=== PATIENT | female | born 1985 | race Caucasian/White ===

== ENCOUNTER 2016-09-26 20:30 | Emergency (ER) | payer OTHER ==
[2016-09-26] MEDS ORDERED: PROVENTIL HFA6.7 GM INH (21:02)
[2016-09-26] MEDS ORDERED: JUNEL FE 1 MG-1 EACH PO (21:02)
[2016-09-26] MEDS ORDERED: PRENATAL TABLE1 EAC2 PO (21:03)
--- NOTE | 2016-09-26 21:07 | ED NECK/BACK PAIN COMPLAINT ---
History of Present Illness General Chief Complaint: Low Back Pain/Injury Stated Complaint: "LOWER BACK PAIN" Source: patient Exam Limitations: no limitations Vital Signs & Intake/Output Vital Signs & Intake/Output Vital Signs Date Time Temp Pulse Resp B/P B/P Pulse O2 O2 Flow FiO2 Mean Ox Delivery Rate 09/27 2047 Room Air 09/26 2034 98.3 73 20 111/77 99 ED Intake and Output 09/27 0000 09/26 1200 Intake Total 0 Output Total Balance 0 Intake, Oral 0 Allergies Coded Allergies: latex (UNKNOWN - REMEMBERS GOING TO ER FROM REACTION 09/26/16) Triage Note: PER PT CO LOWER BACK PAIN SINCE THIS AM BUT HAS BEEN ONGOING X 9 YRS, EVERY FEW MONTHS IT COMES BACK. LMP THIS PAST WEEK Triage Nurses Notes Reviewed? yes : No Patient currently breastfeeds: No HPI: 31F NO PMH WITH 1 DAY OF ACUTE ONSET LOWER BACK PAIN. STARTED WHEN SHE WAS SLEEPING, LUMBAR, BILATERAL, SHOOTING DOWN BOTH LEGS, NO SADDLE PARESTHESIA OR INCONTINENCE. NO HISTORY OF TRAUMA. HAS HAD SIMILAR EPISODES IN THE PAST EVERY 3-4 MONTHS THAT SELF-RESOLVED. (RUMA YEBOAH,ALEXI) Reconcile Medications Albuterol Sulfate (Proventil Hfa) 90 MCG HFA.AER.AD 2 PUF INH AD PRN ASTHMA ( Reported) Cyclobenzaprine HCl 5 MG TABLET 1 TAB PO TIDPRN SCIATICA Ibuprofen 400 MG TABLET 1 TAB PO Q6P PRN BACK PAIN Norethindrone-E.estradiol-Iron (Junel Fe 1 MG-20 Mcg Tablet) 1 MG-20 MCG (21)/75 MG (7) TABLET 1 TAB PO DAILY CONTROL (Reported) Vit No.130/Iron/FA ( Tablet) 27 MG IRON-800 MCG TABLET 1 TAB PO DAILY SUPPLEMENT (Reported) (TYRON YEBOAH,ABNER Couch) Past History Travel History Traveled to [place] past 21 day No Medical History Any Pertinent Medical History? see below for history Neurological: NONE EENT: NONE Cardiovascular: NONE Respiratory: NONE Gastrointestinal: NONE Hepatic: NONE Renal: NONE Musculoskeletal: BACK PROBLEMS Psychiatric: NONE Endocrine: NONE Surgical History Surgical History: non-contributory Psychosocial History What is your primary language Malagasy Tobacco Use: Current Daily Use Daily Tobacco Use Amount/Type: => 5 Cigarettes daily Family History Hx Contributory? No (ALEXI HENDRIX MD) Review of Systems Review of Systems Constitutional: Reports: no symptoms. Eyes: Reports: no symptoms. Ears, Nose, Throat, Mouth: Reports: no symptoms. Respiratory: Reports: no symptoms. Cardiovascular: Reports: no symptoms. Gastrointestinal/Abdominal: Reports: no symptoms. Musculoskeletal: Reports: see HPI. Skin: Reports: no symptoms. Neurological/Psychological: Reports: see HPI. All Other Systems: Reviewed and Negative (RUMA YEBOAH,ALEXI) Physical Exam Physical Exam General Appearance: well developed/nourished, mild distress Head: atraumatic Eyes: Bilateral: PERRL, EOMI. Ears, Nose, Throat, Mouth: hearing grossly normal Neck: normal inspection, supple, full range of motion, normal alignment, no midline tenderness Respiratory: normal breath sounds Cardiovascular: regular rate/rhythm Gastrointestinal: soft, non-tender Back: normal inspection, PARAVERTBRAL LUMBAR TENDERNES BILATERALLY, COULD NOT LAY FLAT FOR STRAIGHT LEG TEST. Extremities: normal range of motion Neurologic/Psych: awake, alert, oriented x 3, normal mood/affect, SENSATION INTACT, LOWER EXTREMITY MOVEMENT LIMITED BY PAIN Skin: intact, normal color, warm/dry (RUMA YEBOAH,ALEXI) Progress Differential Diagnosis: AAA, aortic dissection, C spine injury, carotid dissection, cauda equina syn, herniated disc, myofascial strain, pyelo/UTI, sciatica, spinal cord inj, thoracic outlet syn, T/L spine injury, ureterolithiasis Plan of Care: Orders Procedure Date/time Status CT LUMB SPINE WO IV CONTRAST 09/26 2129 Active Diagnostic Imaging: Discussed w/RAD: CT Scan. Radiology Impression: PATIENT: CLAIRE MENDES PRESENT AGE: 31 PATIENT ACCOUNT NO: [id number] : 86 LOCATION: [facility] ORDERING PHYSICIAN: ALEXI HENDRIX MD SERVICE DATE: 09/26/16 EXAM TYPE: CAT - CT LUMB SPINE WO IV CONTRAST EXAMINATION: CT LUMBAR SPINE WITHOUT CONTRAST CLINICAL INFORMATION: Sciatica COMPARISON: None TECHNIQUE: Helical non-contrast CT images were obtained through the lumbar spine and 1.25 and 2.5 mm axial reconstructions were reviewed along with sagittal and coronal MPRs. Lack of intrathecal contrast limits this exam. I cannot evaluate for effect on the nerve roots or on the thecal sac. There is no fracture here. The vertebral heights are well-maintained. 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 Probable nonobstructing calculus left kidney midpole At L2-L3 and cannot exclude disc bulging hand herniation. No significant degeneration the facets. There does appear to be some effect on the anterior thecal sac. At L3-L4 again I cannot exclude disc bulging/central herniation. Foramina appear patent. At L4-L5 again must consider disc bulging/herniation. Foramina are grossly patent. At L5-S1 there appears to be some degenerative lipping. Calcification partially of disc material extending posterior Central into the right. There does appear to be some mass effect on the thecal sac and lateral recess on the right. The neural foramina are grossly patent. IMPRESSION: Lack of intrathecal contrast greatly limits this exam. I cannot adequately evaluate for disc herniation or effect on the thecal sac or exiting nerve roots. Given this there may well be disc herniations at L2-L3, L3-L4 and L4-L5 and change which may be chronic at L5-S1 central and to the right. MRI is recommended to further evaluate here. There is no bony fracture DICTATED BY: ABNER ARMSTRONG MD DATE/TIME DICTATED:09/26/162242 CORRECTIONAL CAPTAIN:JUNG DATE/TIME TRANSCRIBED:09/26/162242 CONFIDENTIAL, DO NOT COPY WITHOUT APPROPRIATE AUTHORIZATION. <Electronically signed in Other Vendor System> SIGNED BY: ABNER ARMSTRONG MD 09/26/16 [id number] Comments: 09/27/2016 12:11:43 AM I have updated Claire on her test results. She denies cancer unexplained weight loss or immunosuppression, denies IV drug abuse urinary tract infection or recent trauma. Denies pain increased by rest or associated fever. Denies bowel or bladder incontinence or urinary retention. Denies saddle paresthesias or major motor weakness. She feels comfortable enough to return home and has declined any additional medication in the emergency department. (TYRON YEBOAH,ABNER Couch) Departure Departure Condition: Stable Referrals: MOHAN YEBOAH,SANTI Ferreira (PCP/Family) Departure Forms: Customer Survey General Discharge Information Prescriptions: Current Visit Scripts Ibuprofen 1 TAB PO Q6P PRN BACK PAIN #20 TAB Cyclobenzaprine HCl 1 TAB PO TIDPRN #30 TAB (RUMA YEBOAH,ALEXI) Departure Disposition: HOME OR SELF CARE Clinical Impression Primary Impression: Sciatica Secondary Impressions: Degenerative disc disease, lumbar, Low back strain Additional Instructions: Rest, no exertion or heavy lifting. Medications as prescribed. Follow-up with your primary care physician for reevaluation within the next 5-7 days. Return if any concerns or sudden worsening. Please note that there might be incidental findings in your evaluation that are unrelated to the current emergency department visit. Please notify your primary care doctor about this emergency department visit in order to obtain and review all of the testing performed so that these incidental findings can be monitored as needed. If you had an x-ray performed, please understand that some fractures may not be seen on the initial set of x-rays. If your symptoms persist you might need a repeat set of x-rays to check for such a fracture. If you had a laceration evaluated, please understand that foreign bodies such as glass or wood may not be visible to the naked eye or on plain x-rays. If the wound becomes red, swollen, increasingly more painful or if there is any drainage from the wound, please have it reevaluated by a physician for the possibility of a retained foreign body. Thank you for choosing the [facility] Emergency Department for your care. It was a pleasure to serve you today. Abner Larsen M.D. [facility] (TYRON YEBOAH,ABNER Couch)
[2016-09-26] MEDS ORDERED: CYCLOBENZAPRINE5 M2 PO (21:53)
[2016-09-26] MEDS ORDERED: IBUPROFEN400 M1 PO (21:53)
--- NOTE | 2016-09-26 22:53 | CT SCAN REPORT ---
EXAMINATION: CT LUMBAR SPINE WITHOUT CONTRAST CLINICAL INFORMATION: Sciatica COMPARISON: None TECHNIQUE: Helical non-contrast CT images were obtained through the lumbar spine and 1.25 and 2.5 mm axial reconstructions were reviewed along with sagittal and coronal MPRs. Lack of intrathecal contrast limits this exam. I cannot evaluate for effect on the nerve roots or on the thecal sac. There is no fracture here. The vertebral heights are well-maintained. 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 Probable nonobstructing calculus left kidney midpole At L2-L3 and cannot exclude disc bulging hand herniation. No significant degeneration the facets. There does appear to be some effect on the anterior thecal sac. At L3-L4 again I cannot exclude disc bulging/central herniation. Foramina appear patent. At L4-L5 again must consider disc bulging/herniation. Foramina are grossly patent. At L5-S1 there appears to be some degenerative lipping. Calcification partially of disc material extending posterior Central into the right. There does appear to be some mass effect on the thecal sac and lateral recess on the right. The neural foramina are grossly patent. IMPRESSION: Lack of intrathecal contrast greatly limits this exam. I cannot adequately evaluate for disc herniation or effect on the thecal sac or exiting nerve roots. Given this there may well be disc herniations at L2-L3, L3-L4 and L4-L5 and change which may be chronic at L5-S1 central and to the right. MRI is recommended to further evaluate here. There is no bony fracture
[2016-09-27 00:01] VITALS: BP 120/73
== END 2016-09-27 00:32 ==
LOC: ERH 20:30
DX: S39.012A Strain of muscle, fascia and tendon of lower back, initial encounter (principal); M54.40 Lumbago with sciatica, unspecified side; M51.36 Other intervertebral disc degeneration, lumbar region
CPT/HCPCS: 96372; 96374; 96375; J1885; J3360

== ENCOUNTER 2017-11-04 15:12 | Emergency (ER) | payer OTHER ==
[~2017-11-04] VITALS: Ht 160 cm; Wt 59.0 kg
[~2017-11-04 15:12] MED LIST: CYCLOBENZAPRINE5 M2 PO; IBUPROFEN400 M1 PO; JUNEL FE 1 MG-1 EACH PO; PRENATAL TABLE1 EAC2 PO; PROVENTIL HFA6.7 GM INH
[2017-11-04 15:55] LABS: ABSOLUTE BASOPHIL COUNT 0 /CUMM (0.0-0.2); ABSOLUTE EOSINOPHIL COUNT 0.4 /CUMM (0.0-0.7); ABSOLUTE GRANULOCYTE CT 4.2 /CUMM (1.4-6.5); ABSOLUTE LYMPH COUNT 1.8 /CUMM (1.2-3.4); ABSOLUTE MONOCYTE COUNT 0.6 /CUMM (0.10-0.60); BASOPHIL % 0.6 % (0.0-2.0); EOSINOPHIL % 5.3 % (0-5); GRANULOCYTE % 60.2 % (42.2-75.2); HEMATOCRIT 35.9 % (37-47); MEAN CORPUSCULAR HGB 31.4 PG (27.0-31.0); MEAN CORPUSCULAR HGB CONC 34.5 G/DL (33.0-37.0); MEAN PLATELET VOLUME 9.6 FL (7.4-10.4); PLATELET COUNT 200 /CUMM (130-400); RBC DISTRIBUTION WIDTH 12.7 % (11.5-14.5); RED BLOOD CELL CT 3.94 /CUMM (4.20-5.40); WHITE BLOOD CELL COUNT 6.9 /CUMM (4.8-10.8)
--- NOTE | 2017-11-04 17:18 | ED GENERAL ADULT ---
History of Present Illness General Chief Complaint: General Adult Stated Complaint: "HEART RACING, THEN SLOWING, THEN RACING" Source: patient Exam Limitations: no limitations Vital Signs & Intake/Output Vital Signs & Intake/Output Vital Signs Date Time Temp Pulse Resp B/P B/P Pulse O2 O2 Flow FiO2 Mean Ox Delivery Rate 11/04 1622 Room Air 11/04 1526 97.0 83 18 137/90 97 Room Air Allergies Coded Allergies: latex (UNKNOWN - REMEMBERS GOING TO ER FROM REACTION 09/26/16) Reconcile Medications Albuterol Sulfate (Proventil Hfa) 90 MCG HFA.AER.AD 2 PUF INH AD PRN ASTHMA ( Reported) Cyclobenzaprine HCl 5 MG TABLET 1 TAB PO TIDPRN SCIATICA Ibuprofen 400 MG TABLET 1 TAB PO Q6P PRN BACK PAIN Norethindrone-E.estradiol-Iron (Junel Fe 1 MG-20 Mcg Tablet) 1 MG-20 MCG (21)/75 MG (7) TABLET 1 TAB PO DAILY CONTROL (Reported) Vit No.130/Iron/FA ( Tablet) 27 MG IRON-800 MCG TABLET 1 TAB PO DAILY SUPPLEMENT (Reported) Triage Note: 32 Y/O FEMALE C/O INTERMITTENT HEART "GOING REALLY FAST AND THEN SLOWS" SINCE WAKING THIS MORNING.. PT DENIES C/P. DENIES SOB. DENIES OTHER COMPLAINTS. STATES SHE PASSED OUT ONCE IN APR AND WAS TOLD IT WAS RELATED TO ANXIETY. DENIES FEELING STRESS OR ANXIETY TODAY. EKG SINUS, RATE 83 EVALD BY JAQUELINE COLÓN Triage Nurses Notes Reviewed? yes : No Patient currently breastfeeds: No HPI: This is an otherwise healthy 32-year-old female presents to the emergency department with a sensation of near syncope in the setting of mild palpitations. Patient states that she has had similar symptoms on and off for the past 6 months. She has previously had one syncopal episode, for which she was worked up, with no satisfying answers. She followed up with her primary care doctor and was told that she likely has anxiety. She denies any recent travel, trauma, illness. She does take control, denies any other ingestions. She has a history of blood clots. She has no history of malignancy or recent surgery. Past History Travel History Traveled to [place] past 21 day No Medical History Any Pertinent Medical History? none Neurological: NONE EENT: NONE Cardiovascular: NONE Respiratory: NONE Gastrointestinal: NONE Hepatic: NONE Renal: NONE Musculoskeletal: BACK PROBLEMS Psychiatric: NONE Endocrine: NONE Surgical History Surgical History: non-contributory Psychosocial History What is your primary language Jamaican Tobacco Use: Quit >30 days ago Family History Hx Contributory? No Review of Systems Review of Systems Constitutional: Reports: no symptoms. EENTM: Reports: no symptoms. Cardiovascular: Reports: see HPI. GI: Reports: no symptoms. Musculoskeletal: Reports: no symptoms. Skin: Reports: no symptoms. Neurological/Psychological: Reports: see HPI. Hematologic/Endocrine: Reports: no symptoms. Immunologic/Allergic: Reports: no symptoms. Physical Exam Physical Exam General Appearance: well developed/nourished, no apparent distress, alert, awake , comfortable, thin Head: atraumatic, normal appearance Eyes: Bilateral: normal appearance, PERRL, EOMI. 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 Core Measures ACS in differential dx? Yes CVA/TIA Diagnosis: No Sepsis Present: No Sepsis Focused Exam Completed? No Progress Differential Diagnoses I considered the following diagnoses in my evaluation of the patient: Arrhythmia , metabolic derangement, pulmonary embolism, however patient is PERC negative; low suspicion for ACS in this patient. Could be related to anxiety, stress. 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 Plan of Care: Orders Procedure Date/time Status D-DIMER 11/04 1528 Complete URINE 11/04 151 Complete URINE DRUG SCREEN FOR ER ONLY 11/04 151 Complete URINALYSIS 11/04 151 Complete TSH REFLEX 11/04 151 Complete TROPONIN LEVEL 11/04 151 Complete MAGNESIUM 11/04 151 Complete COMPREHENSIVE METABOLIC PANEL 11/04 151 Complete CBC WITHOUT DIFFERENTIAL 11/04 151 Complete EKG 11/04 151 Active Laboratory Tests 11/04/17 1618: Urine Opiates Screen < 100, Methadone Screen < 40, Barbiturate Screen < 60, Ur Phencyclidine Scrn < 6.00, Amphetamines Screen < 100, U Benzodiazepines Scrn < 85, Urine Cocaine Screen < 50, Urine Cannabis Screen < 5.00, Urine Color YEL, Urine Clarity CLEAR, Urine pH 6.5, Ur Specific [place] 1.015, Urine Protein NEG, Urine Ketones NEG, Urine Nitrite NEG, Urine Bilirubin NEG, Urine Urobilinogen 0.2, Ur Leukocyte Esterase NEG, Ur Microscopic SEDIMENT EXAMINED, Urine RBC 1-3, Urine WBC RARE, Ur Epithelial Cells MOD H, Urine Bacteria FEW H, Urine Mucus RARE, Urine Hemoglobin SMALL H, Urine Glucose NEG, Urine Test NEGATIVE 11/04/17 1540: Anion Gap 11, Estimated GFR > 60, BUN/Creatinine Ratio 18.6, Glucose 100 H, Calcium 9.7, Magnesium 2.0, Total Bilirubin 0.4, AST 19, ALT 24, Alkaline Phosphatase 45, Troponin I < 0.01, Total Protein 7.5, Albumin 4.3, Globulin 3.2, Albumin/Globulin Ratio 1.3, TSH &T3 &Free T4 Intrp 1.960, D-Dimer High Sensitivty < 200, CBC w Diff NO MAN DIFF REQ, RBC 3.94 L, MCV 91.0, MCH 31.4 H , MCHC 34.5, RDW 12.7, MPV 9.6, Gran % 60.2, Lymphocytes % 25.6, Monocytes % 8.3 , Eosinophils % 5.3 H, Basophils % 0.6, Absolute Granulocytes 4.2, Absolute Lymphocytes 1.8, Absolute Monocytes 0.6, Absolute Eosinophils 0.4, Absolute Basophils 0 Urinalysis is unremarkable, metabolic panel and CBCs are reassuring. TSH is a d -dimer is negative. Patient well-appearing on reassessment. Lungs remain clear , obviating need to pursue chest film for pneumonia or pneumothorax. Patient discharged home with plan to follow-up with outpatient provider. Return precautions and follow-up instructions were provided. Initial ED EKG: normal axis, normal intervals, normal p-waves, normal QRS complex, normal sinus rhythm, no ST T wave changes Departure Departure Time of Disposition: 1715 Disposition: HOME OR SELF CARE Condition: Stable Clinical Impression Primary Impression: Near syncope Secondary Impressions: Palpitations Referrals: Jeremías YEBOAH,Malick Ferreira (PCP/Family) Additional Instructions: Thank you for coming to the emergency department today. As we discussed, it is important to follow-up with your outpatient provider. They may choose to start you on a Holter monitor for further evaluation. Please return to the emergency department if your symptoms worsen or persist you develop any other new or concerning symptoms such as shortness of breath, chest pain, abdominal pain, dizziness, confusion, fever, chills. Departure Forms: Customer Survey General Discharge Information Critical Care Note Critical Care Note Critical Care Time: non-applicable
[2017-11-04 17:30] VITALS: BP 123/70
== END 2017-11-04 17:34 ==
LOC: ERH 15:12
PROVIDERS: Physician Assistant Medical
DX: R55 Syncope and collapse (principal); R00.2 Palpitations
CPT/HCPCS: 80307; 81001; 81025; 93005; 93010